=== PATIENT | female | born 1985 | race Hispanic/Latino ===

== ENCOUNTER 2018-04-20 11:49 | Day surgery (SDC) | payer BC ==
[2018-04-13 14:05] VITALS: BMI 28.3
[2018-04-20 13:28] LABS: MEAN CELL VOLUME 91.1 fl (81.0-99.0); MEAN CORPUSCULAR HEMOGLOBIN 31.3 pg (27.0-31.0); MEAN CORPUSCULAR HGB CONC 34.3 g/dL (33.0-37.0); RBC 3.83 Mil/uL (3.80-5.20); RED CELL DISTRIBUTION WIDTH 13.6 % (11.5-14.5); WHITE BLOOD COUNT 5.2 K/uL (4.8-10.8)
[2018-04-20] MEDS ORDERED: ePHEDrine 50 mg/ml Inj ONE ×2 (14:47→15:53)
[2018-04-20] MEDS ORDERED: Propofol 10 mg/ml Inj (20 ML) ONE ×2 (14:47→16:55)
[2018-04-20] MEDS ORDERED: Rocuronium 10 mg/ml (5 ml) ONE ×2 (14:47→15:56)
[2018-04-20] MEDS ORDERED: Midazolam 2 MG/2 ML VIAL ONE (14:47)
[2018-04-20] MEDS ORDERED: Succinylcholine 200 mg/10 ml Inj IV ONE (14:48)
[2018-04-20] MEDS ORDERED: Clindamycin 600mg/50ml NS 600 MG/50 ML BAG IVPB ONE (14:50)
[2018-04-20] MEDS ORDERED: Bupivacaine HCl 0.5% PF (30 ml) Inj ONE (14:50)
[2018-04-20] MEDS ORDERED: Neostigmine 1:1000 (1 mg/ml) Inj ONE ×2 (15:22→16:27)
[2018-04-20] MEDS ORDERED: Lactated Ringer's 1,000 ML IV ONE (15:25)
[2018-04-20] MEDS ORDERED: Desflurane Inhalation Anesthetic Liq (240 ml) ONE (16:16)
[2018-04-20] MEDS ORDERED: Dexamethasone 4 mg/1 ml ONE (16:31)
[2018-04-20] MEDS ORDERED: Silver Nitrate Topical - Stick TOP ONE (16:50)
[2018-04-20] MEDS ORDERED: Oxycodone/Acetaminophen 5/325 mg Tab PO PRN (17:04)
[2018-04-20] MEDS ORDERED: HYDROmorphone 0.5 mg/0.5 ml ISec IVP PRN (17:06)
[2018-04-20] MEDS ORDERED: Lactated Ringer's 1,000 ML IV SCH (17:15)
[2018-04-20 20:05] VITALS: BP 129/80; PULSE 80; RESP 20; TEMP 97.6; O2SAT 98
--- NOTE | 2018-04-25 08:13 | PCM.OP ---
Operative Report - Operative Report Date of Surgery/Procedure: 04/20/18 Time of Surgery/Procedure: 08:00 Surgeon: Dr. Jonas Orellana [employer] Operator: Dr. Florian Wilder Anesthesia/Sedation: general/Dr. Velez Pre-Operative Diagnosis: Abdominal pain and endometriosis Post-Operative Diagnosis: abdominal pain, ednometriosis and abdominal/ intestinal adhesions Indication for Surgery: as above Operative Findings: multiple dense adhesions Procedure/Operation Description: 1-lysis of dense adhesions. Brief History: This 32 year old woman referred intraoperatively by Dr. Wilder with the operative findings of dense adhesions to the abdominal wall and intestines. Description of the Procedure: the patient had already been brought to the operating room by Dr. Wilder (separate dictation Dr. Wilder). After taking control of the robotic console multiple dense adhesions were lysed with blunt and sharp dissection with the aid of electrocautery. The adhesions were lysed from the abdominal wall to the small bowel. Once the adhesions were cleared the operation was then turned over to Dr. Wilder (separate dictation). Estimated Blood Loss: 5 cc Complications: none Discharge & Condition: stable
--- NOTE | 2018-04-25 14:57 | OP ---
PROCEDURE DATE: 04/21/2018 PREOPERATIVE DIAGNOSES: Pelvic pain, dysmenorrhea and dyspareunia, rule out endometriosis. POSTOPERATIVE DIAGNOSES: Pelvic pain, dysmenorrhea and dyspareunia, rule out endometriosis plus pelvic adhesions. PROCEDURE PERFORMED: Cystoscopy with bilateral ureteral catheterization and injection of IC-Green dye, diagnostic hysteroscopy, robotic da Lesley operative laparoscopy, excision of endometriosis, bilateral ureterolysis, and separately to be dictated by Dr. Orellana, is a lysis of adhesion. SURGEON: Florian Wilder MD TERMINAL BLOCK ASSEMBLER: Assisted by Jonas Orellana MD TYPE OF ANESTHESIA: General endotracheal. ESTIMATED BLOOD LOSS: Minimal. COMPLICATIONS: None. SPECIMEN: Multiple sent to Pathology. INDICATION FOR THE PROCEDURE: The patient is a 32-year-old with a history of dysmenorrhea, dyspareunia, and possible endometriosis. She had a prior history of advanced abdominal surgery for a gastric bypass. The patient was counseled with regards to risks and benefits of the surgery, due to risk of surgery Dr. Jonas Orellana, from general surgery was called in and procedure was started. DESCRIPTION OF PROCEDURE: After adequate anesthesia was obtained, the patient was placed in the dorsal lithotomy position with extreme care for padding every area prone to pressure. The patient's hips were placed in the most comfortable position and they were not hyperextended or hyperflexed. The patient was prepped and draped. The surgeons were gowned and gloved and a time-out was taken according to the hospital policy. At this point, a cystoscope was inserted into the bladder under direct visualization, the bladder appeared to be normal with a free of any lesions. The left ureteral ostium was cannulated in a 5-Norwegian catheter was advanced to the distal ureter and 5 mL of IC-Green were injected. Catheter was then removed and injected in the contralateral ureter into the distal ureter where again 5 mL of IC-Green were injected. A cystoscope was removed and a 16-Norwegian Galarza was placed into the bladder. At this point, a speculum was placed in the vagina. The anterior lip of the cervix was grasped, the cervix was gently dilated and a hysteroscope was inserted into the uterine cavity. Uterine cavity appeared to be normal without evidence of any major lesions. A small polyp was noticed and it was removed with the gentle curettage. At this point, attention was on the abdominal site where Dr. Orellana performed an open laparoscopy, he encountered some adhesions and took them down, which she will dictate separately. At this point, the da Lesley robot was docked and with ports in the left upper quadrant, right upper quadrant and left mid quadrant. All the ports were placed under direct visualization. The pelvis was visualized revealing presence of areas of erythematous, potential endometriosis both in the left and right pelvic sidewall. Attention was first turned on the left pelvic sidewall with the peritoneum was grasped and a progressive dissection was performed, dissecting to peritoneum, from the left sidewall and lateralizing the ureter, medializing the peritoneum and the large area of new peritoneum was excised and sent to Pathology. At this point, dissection was continued passed uterosacral ligament all the way to the left cul-de-sac. The posterior cervical area was also dissected with great attention to its size and area, suspicion for endometriosis. Attention was now on the right hand side of pelvis where again the retroperitoneal area was entered and a progressive dissection of the ureter was performed, to perform ureterolysis and near of endometriosis containing peritoneum, continue endometriosis was dissected off, starting of the right pelvic rim all the way down to the right ovarian fossa. This specimen was sent to Pathology. Again, on the right posterior cul-de-sac area, an additional area of peritoneum was excised. On the posterior aspect of the uterus areas of slight inflammatory appearance was ablated utilizing a helium plasma energy. At this point, it was checked for hemostasis, appeared to be excellent. All the instruments were removed. The patient was woken up and taken to recovery room in excellent condition. Florian Wilder MD SKIP
== END 2018-04-20 21:20 | disposition home or self-care (01) ==
LOC: H.OPSURG 11:49 → H.PEDS 18:38 → H.OPSURG 18:38 → H.PEDS 21:20 → H.OPSURG 21:20
PROVIDERS: ATTEND Obstetrics & Gynecology Reproductive Endocrinology
DX: N80.0 Endometriosis of uterus (principal); R10.2 Pelvic and perineal pain; N94.6 Dysmenorrhea, unspecified; N94.10 Unspecified dyspareunia; K66.0 Peritoneal adhesions (postprocedural) (postinfection)
CPT/HCPCS: 36415; 58558; 58662; 85027; 86850; 86870; 86900; 88305; C1729; J0330; J1100; J1885; J2001; J2250; J2704; J2710; J2765; J3010; J7030; J7040; J7120